=== PATIENT | female | born 1975 ===

== ENCOUNTER → 2016-06-26 | Outpatient (CLI) | payer BC, OTHER ==
--- NOTE | 2016-06-26 14:40 | MA ---
CORRECTED ORDER Diagnostic Bilateral Digital Mammogram With Tomosynthesis Clinical Indications: Lump 8:30 - 9:00 left breast Technique: Standard digital cephalocaudal and tomosynthesis mediolateral oblique projections were obtained. The digital images were processed by the [employer] computer aided detection system. Comparison: None. Breast density: D; The breast tissue is extremely dense. This may lower the sensitivity of mammography. Findings: CAD was reviewed. No suspicious findings are identified. No abnormality identified in the inner left breast. Impression: Negative mammogram with a palpable lump. Recommendation: Proceed to left breast sonogram to evaluate the palpable lump. We will perform this shortly. BI-RADS 0. Additional imaging left breast [facility] will send a result letter to the patient. Negative mammography should not preclude additional workup of a clinically suspicious finding. The patient's information is entered into a reminder system with a target due date for her next mammogram. [facility]
--- NOTE | 2016-06-26 15:13 | US ---
Left Breast Ultrasound History: Lump inner breast Comparison: Diagnostic mammogram done earlier Technique: I first performed a directed physical examination. This was followed by ultrasound exam with a high frequency linear transducer. Findings: On physical examination there is a thin radially oriented bridges at the 8:30 radial zone 2 -3. Ultrasound of this area reveals normal fatty lobules. No solid or cystic ultrasound abnormality o r sonographic architectural distortion is identified to correlate with the palpable thickening. Impression: My suspicion is at the palpable thickening ridge is consistent with normal breast Jan' s ligament between fatty lobules. No mammogram or ultrasound abnormality is present in this area. Recommendation: The patient's breast thickening should be managed clinically. Screening mammography i s recommended in one year. If the ridge increases in size, follow-up ultrasound could be performed. T he patient was educated about the importance of self breast examination. BI-RADS 1. Negative imaging.
== END ==
LOC: FIMAGING 13:52
DX: R92.8 Other abnormal and inconclusive findings on diagnostic imaging of breast (principal)
CPT/HCPCS: G0204; G0279

== ENCOUNTER → 2016-07-07 | Outpatient (CLI) | payer BC, OTHER | LOC: FIMAGING 14:15 | DX: D25.1 Intramural leiomyoma of uterus (principal) ==

== ENCOUNTER → 2018-06-15 | Outpatient (CLI) | payer BC | LOC: FIMAGING 16:02 | PROVIDERS: ATTEND Obstetrics & Gynecology | DX: D25.1 Intramural leiomyoma of uterus (principal) ==